=== PATIENT | female | born 1960 | race Caucasian/White ===

== ENCOUNTER 2024-02-08 13:37 | Outpatient (OUT) | payer MEDICARE, OTHER, SELFPAY ==
--- NOTE | 2024-02-08 13:46 | XR_ITS ---
The [address] [address] Patient Name: HUMA ANGELA MRN: [id number] date: 1960 Sex: F Assigned Patient Location: [facility] Current Patient Location: [facility] Accession/Order Number: [id number] Exam Date: 02/08/2024 14:50 Report Date: 02/09/2024 11:12 At the request of: AMBER POLO Procedure: XR chest 2V EXAMINATION: XR chest 2V HISTORY: Preop exam COMPARISON: No relevant comparison available. FINDINGS: LUNGS: Mild wall thickening of a few central bronchi. Opacities obscuring the posterior costal phrenic angles. VASCULATURE: No increased pulmonary vasculature. PLEURA: No pneumothorax, effusion, or pleural thickening. CARDIAC: No cardiomegaly or cardiac silhouette abnormality. MEDIASTINUM: No visible mass or adenopathy. BONES: No fracture or visible bone lesion. OTHER: Negative. XR/XR chest 2V IMPRESSION: 1. Mild opacities within posterior costophrenic angle; atelectasis versus infiltrates. 2. Slight bronchial wall thickening; possible mild bronchiolitis. Electronically authenticated by: ANDREI CHRISTY Date: 02/09/2024 11:12
--- NOTE | 2024-02-08 14:41 | PM.PRESUREVA ---
History of Present Illness History of Present Illness Chief complaint: right eustachian tube dysfunction Narrative: Patient presents for preadmission testing. The patient reports a long history of right-sided hearing loss. She has had a myringotomy with tubes placed in the past. The patient states she had COVID in 2020 with respiratory failure, and is now oxygen dependent. She does wear 2 L [id number]-[id number] and also uses a CPAP for sleep apnea at night. The patient states she was recently admitted to [facility] in [place] for diverticulitis. She is taking 2 antibiotics at this time. Review of Systems ROS Narrative REVIEW OF SYSTEMS: Negative except as stated in HPI, ten or more systems reviewed. Constitutional: No fever, chills, weakness ENT: No sore throat or epistaxis Cardiovascular: No edema, chest pain, or palpitations Respiratory: Chronic shortness of breath Musculoskeletal: No joint pain or swelling Gastrointestinal: No abdominal pain, constipation, diarrhea, or vomiting Genitourinary: No dysuria or hematuria Neurological: No numbness, tingling, weakness, or headache Psychiatric: No mood changes [facility] Medical History (Updated 02/08/24 @ 14:12 by Latha Mays NP) Seasonal allergies ?J30.2 - Other seasonal allergic rhinitis (ICD-10) Anemia ?D64.9 - Anemia, unspecified (ICD-10) Pneumonia ?J18.9 - Pneumonia, unspecified organism (ICD-10) Dizziness ?R42 - Dizziness and giddiness (ICD-10) Dyspnea ?R06.00 - Dyspnea, unspecified (ICD-10) Back pain ?M54.9 - Dorsalgia, unspecified (ICD-10) Neuropathy ?G62.9 - Polyneuropathy, unspecified (ICD-10) Diverticulosis ?K57.90 - Diverticulosis of intestine, part unspecified, without perforation or abscess without bleeding (ICD-10) Hearing loss ?H91.90 - Unspecified hearing loss, unspecified ear (ICD-10) Psychosis ?F29 - Unspecified psychosis not due to a substance or known physiological condition (ICD-10) Vertigo ?R42 - Dizziness and giddiness (ICD-10) Diabetes ?E11.9 - Type 2 diabetes mellitus without complications (ICD-10) Tremor ?R25.1 - Tremor, unspecified (ICD-10) Sleep apnea ?G47.30 - Sleep apnea, unspecified (ICD-10) Dyslipidemia ?E78.5 - Hyperlipidemia, unspecified (ICD-10) Lung nodule ?R91.1 - Solitary pulmonary nodule (ICD-10) Migraine ?G43.909 - Migraine, unspecified, not intractable, without status migrainosus (ICD-10) Depression ?F32.A - Depression, unspecified (ICD-10) Chronic respiratory failure with hypoxia ?J96.11 - Chronic respiratory failure with hypoxia (ICD-10) COPD (chronic obstructive pulmonary disease) ?J44.9 - Chronic obstructive pulmonary disease, unspecified (ICD-10) Hypertension ?I10 - Essential (primary) hypertension (ICD-10) Anxiety ?F41.9 - Anxiety disorder, unspecified (ICD-10) Adrenal mass ?E27.8 - Other specified disorders of adrenal gland (ICD-10) Middle ear effusion ?H65.90 - Unspecified nonsuppurative otitis media, unspecified ear (ICD-10) COVID-19 ?U07.1 - COVID-19 (ICD-10) On home oxygen therapy ?Z99.81 - Dependence on supplemental oxygen (ICD-10) Surgical History (Updated 02/08/24 @ 14:11 by Latha Mays NP) History of myringotomy ?Z98.890 - Other specified postprocedural states (ICD-10) History of tubal ligation ?Z98.51 - Tubal ligation status (ICD-10) History of tonsillectomy ?Z90.89 - Acquired absence of other organs (ICD-10) H/O lymph node biopsy ?Z98.890 - Other specified postprocedural states (ICD-10) History of hip surgery ?Z98.890 - Other specified postprocedural states (ICD-10) History of cholecystectomy ?Z90.49 - Acquired absence of other specified parts of digestive tract (ICD-10) History of carpal tunnel release ?Z98.890 - Other specified postprocedural states (ICD-10) History of repair of rotator cuff ?Z98.890 - Other specified postprocedural states (ICD-10) History of foot surgery ?Z98.890 - Other specified postprocedural states (ICD-10) History of appendectomy ?Z90.49 - Acquired absence of other specified parts of digestive tract (ICD-10) Family History (Updated 02/08/24 @ 14:01 by Latha Mays NP) Other Family history of cancer Family history of diabetes mellitus Social History (Updated 02/08/24 @ 14:05 by Latha Mays NP) Within the past year, how often did you have a drink containing alcohol: never Score interpretation: A score less than 3 is consistent with normal alcohol consumption. Smoking status: Former smoker Non-prescribed substance use: denies use Highest level of school completed/degree received: 11th grade Meds Home Medications and Allergies Home Medications ?Medication ?Instructions ?Recorded ?Confirmed ?Type Lactobacillus acidophilus 10 100 mmu cells PO TID 02/08/24 02/08/24 History billion cell capsule albuterol sulfate 2.5 mg/3 mL 2.5 mg inhalation Q4H PRN 02/08/24 02/08/24 History (0.083 %) solution for nebulization shortness of breath or wheezing albuterol sulfate 90 mcg/actuation 2 inh inhalation Q6H PRN shortness 02/08/24 02/08/24 History aerosol inhaler of breath or wheezing alprazolam 1 mg tablet 1 mg PO BID PRN anxiety 02/08/24 02/08/24 History amitriptyline 10 mg tablet 10 mg PO BID 02/08/24 02/08/24 History aspirin 81 mg tablet,delayed 81 mg PO DAILY 02/08/24 02/08/24 History release (Adult Aspirin Regimen) atenolol 25 mg tablet 25 mg PO Q24H 02/08/24 02/08/24 History atorvastatin 40 mg tablet 40 mg PO DAILY 02/08/24 02/08/24 History biotin 800 mcg tablet 800 mcg PO DAILY 02/08/24 02/08/24 History budesonide 160 mcg-glycopyr 9 2 inh inhalation BID 02/08/24 02/08/24 History mcg-formot 4.8 mcg/actuation HFA inhaler (Breztri Aerosphere) cephalexin 500 mg capsule 500 mg PO Q8H 02/08/24 02/08/24 History cholecalciferol (vitamin D3) 10 10 mcg PO DAILY 02/08/24 02/08/24 History mcg (400 unit) capsule ferrous sulfate 325 mg (65 mg 325 mg PO DAILY 02/08/24 02/08/24 History iron) tablet (FeroSul) lamotrigine 200 mg tablet 200 mg PO DAILY 02/08/24 02/08/24 History lisinopril 2.5 mg tablet 2.5 mg PO DAILY 02/08/24 02/08/24 History metformin 500 mg tablet,extended 500 mg PO DAILY 02/08/24 02/08/24 History release 24 hr metronidazole 500 mg tablet 500 mg PO Q8H 02/08/24 02/08/24 History montelukast 10 mg tablet 10 mg PO DAILY 02/08/24 02/08/24 History paliperidone 6 mg tablet,extended 6 mg PO QPM 02/08/24 02/08/24 History release 24 hr primidone 50 mg tablet 100 mg PO QPM 02/08/24 02/08/24 History semaglutide 14 mg tablet (Rybelsus) 14 mg PO DAILY 02/08/24 02/08/24 History sertraline 100 mg tablet 100 mg PO Q24H 02/08/24 02/08/24 History Allergies Allergy/AdvReac Type Severity Reaction Status Date / Time No Known Drug Allergies Allergy Verified 02/08/24 14:03 Exam Narrative Exam Narrative: Constitutional: Awake, alert, comfortable, well-appearing, nontoxic, interactive, vital signs as charted Head: Normocephalic, atraumatic Eyes: Conjunctiva and lids normal to inspection, pupils normal ENT: Right TM effusion, naris patent, posterior oropharynx clear, oral mucosa moist Neck: Supple, normal appearance, normal range of motion, no meningeal signs, no lymphadenopathy Respiratory: No respiratory distress, breath sounds diminished throughout Cardiovascular: Regular rate and rhythm, strong and regular heart tones Musculoskeletal: Normal gait, no swelling or edema Skin: No rashes or induration, no lesions, only visible skin inspected Neuro: No neurological deficits, normal sensation Psychiatric: Oriented ?3, normal affect Assessment and Plan Assessment and Plan (1) Middle ear effusion: Plan Right myringotomy with insertion of ventilation tube, T-tube scheduled with Dr. rCews February 16, 2024.
== END 2024-02-08 13:38 | disposition home or self-care (01) ==
LOC: PST 13:43
PROVIDERS: Visit Provider Otolaryngology
DX: Z01.810 Encounter for preprocedural cardiovascular examination (principal); Z01.812 Encounter for preprocedural laboratory examination; Z01.818 Encounter for other preprocedural examination; H65.491 Other chronic nonsuppurative otitis media, right ear
CPT/HCPCS: 71046; 80048; G0463

== ENCOUNTER 2024-02-16 08:10 | Day surgery (SDC) | payer MEDICARE, OTHER, SELFPAY ==
[2024-02-08 14:24] VITALS: BP 128/74; PULSE 87; TEMP 36.3; O2SAT 96; BMI 45.2
[2024-02-16] VITALS (14 sets, daily range): BP systolic 121–146; BP diastolic 46–80; PULSE 70–110; TEMP 36.1–36.3; O2SAT 94–100; BMI 44.1
--- NOTE | 2024-02-16 | OP_ITS ---
OPERATION DATE: 02/16/2024 PRIMARY CARE PHYSICIAN: Nela Hollis M.D. SURGEON: Sandra Crews M.D. PREOPERATIVE DIAGNOSIS: Right eustachian tube dysfunction. POSTOPERATIVE DIAGNOSIS: Right eustachian tube dysfunction. PROCEDURE: Right myringotomy and tube with microdissection, placement of a T- tube. ANESTHESIA: General LMA. COMPLICATIONS: None. FINDINGS: Thin, clear right middle ear effusion which was sent for beta 2 transferrin testing in order to determine whether it might be cerebral spinal fluid. PROCEDURE: Patient identified in the holding area and taken back to the OR where she was placed in the supine position. After induction of general anesthesia using an LMA, the right ear was approached with the otomicroscope. Cerumen was cleaned from the canal using a cerumen curette and an anterior radial myringotomy was performed. Patient was noted to have a thin, clear middle ear effusion and so a Venturi trap was then used to aspirate the middle ear. This fluid will be sent for beta 2 transferrin testing for possible CSF otorrhea. A modified Alverto?s T-tube was then folded, inserted through the myringotomy and opened in the middle ear using microdissection. Patient was then awakened and taken to the recovery room in good condition. ANN
[2024-02-16 08:44] LABS: Glucometer 130 mg/dL (74-106)
[2024-02-16] MEDS: LACTATED RINGER'S SOLUTION 1,000 ML 50 ML IV (08:47)
== END 2024-02-16 12:26 | disposition home or self-care (01) ==
PROVIDERS: Visit Provider Otolaryngology
PROC: (CPT 69436; principal; 2024-02-16 09:30)
DX: H69.81 Other specified disorders of Eustachian tube, right ear (principal); E11.9 Type 2 diabetes mellitus without complications; Z87.891 Personal history of nicotine dependence; Z79.84 Long term (current) use of oral hypoglycemic drugs; Z86.16 Personal history of COVID-19; Z99.81 Dependence on supplemental oxygen
CPT/HCPCS: 69436; 36415; 82948; 86335; 99999; J1094; J2704